=== PATIENT | male | born 1990 | race Caucasian/White ===

== ENCOUNTER 2016-04-10 10:23 | Emergency (ER) | payer MEDICAID, SELFPAY ==
[2016-04-10 11:17] LABS: BASO # 0.1 K/mm3 (0.0-0.2); BASO % 0.9 % (0.0-1.0); EOS # 0.7 K/mm3 (0.0-0.50); EOS % 7.3 % (0.0-3.0); LARGE UNSTAINED CELL # 0.3 K/mm3 (0.0-0.4); LARGE UNSTAINED CELL % 2.9 % (0.0-4.0); LYMPH # 2.5 K/mm3 (1.5-6.5); LYMPH % 26.5 % (24.0-44.0); MEAN CORPUSCULAR HEMOGLOBIN 30.6 pg (27.0-33.0); MEAN CORPUSCULAR VOLUME 92.6 fl (80.0-96.0); MONO # 0.6 K/mm3 (0.0-0.8); MONO % 5.8 % (0.0-5.0); NEUTROPHILS # 5.4 K/mm3 (1.8-7.7); NEUTROPHILS % 56.6 % (36.0-66.0); PLATELET COUNT, AUTOMATED 160 k/mm3 (150-450); RED CELL DISTRIBUTION WIDTH 12.8 % (11.5-14.5); WHITE BLOOD COUNT 9.5 K/mm3 (4.0-10.0)
[2016-04-10 11:23] LABS: ANION GAP 8 MEQ/L (8-16); BLOOD UREA NITROGEN 13 MG/DL (7-18); CALCIUM LEVEL 9.1 MG/DL (8.5-10.1); CARBON DIOXIDE LEVEL 27 MEQ/L (21-32); CHLORIDE LEVEL 106 MEQ/L (98-107); CREATININE FOR GFR 0.81 MG/DL (0.70-1.30); GLOMERULAR FILTRATION RATE > 60.0 (>60); GLUCOSE, FASTING 95 MG/DL (70-105); POTASSIUM SERUM 4.5 MEQ/L (3.5-5.1); SODIUM LEVEL 141 MEQ/L (136-145)
--- NOTE | 2016-04-10 11:37 | REP ---
Chest two views HISTORY: Chest pain Comparison: 04/27/2007 The lungs are clear. The heart is normal in size. The pulmonary vasculature is normal in appearance. The bony structure is intact. Two prosthetic heart valves are present. The patient is status post sternotomy. IMPRESSION: No acute disease. Signed by Darrell Patel MD 04/10/2016 11:28 A
--- NOTE | 2016-04-10 14:55 | EDDOCDS ---
Physician Documentation [facility], [place] Name: Makc Negrete Age: 26 yrs Sex: Male : 1990 Arrival Date: 04/10/2016 Time: 10:23 Bed 10 Private MD: NO PRIMARY PHYSICIAN, . Disposition: 04/10 14:38 Critical Care: Critical care not applicable. pc Disposition: 04/10/16 14:42 Discharged to Home/Self Care. 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 - Condition is Stable. - Discharge Instructions: Nonspecific Chest Pain. - Prescriptions for Warfarin 5 mg Oral Tablet - take 1 tablet by ORAL route as directed Day 1: 2 tabs po, day 2: 1.5 tabs po, day 3 until finished: 1 po daily; 20 tablet. - Medication Reconciliation, Local Pharmacy Hours form. - Follow up: Ronaldo Dockery; When: Call to arrange an appointment; Reason: To establish care. - Problem is new. - Symptoms have improved. HPI: 11:05 This 26 yrs old Male presents to ER via Walkin/Carried/Asstd with complaints pc of Chest Tightness. 11:05 The history is obtained from the patient. Symptoms began suddenly just prior to pc arrival. Symptoms have resolved. They lasted for 15 minutes. Symptoms He was driving and had a squeezing sensation in his left chest, radiated to his throat and then resolved after 15-20 minutes. He denies any SOB, palpitations, nausea, diaphoresis. At its worst, the symptoms were a 5 out of 10. In the emergency department, the symptoms has resolved. The patient has experienced similar episodes in the past, several times, today's symptoms are similar, but lasting only a few minutes . The patient has not recently seen a physician. He had rheumatic fever as a child and required aortic and mitral replacement. He has been off all anticoagulation by his own choice, and has not seen a Gate Clerk in 8-10 years. Historical: - Allergies: No known drug Allergies; - Home Meds: 1. none - PMHx: Rheumatic Fever; - PSHx: aortic and mitral valve replacement; - The history from nurses notes was reviewed: and I agree with what is documented. - Social history: Smoking status: Patient uses tobacco products, heavy tobacco smoker. No barriers to communication noted, The patient speaks fluent [place], Speaks appropriately for age. - : The pt / caregiver states he / she is not on anticoagulants. Home medication list is obtained from the patient. - Hospitalizations: : No recent hospitalization is reported. - Exposure Risk Screening:: None identified. - Immunization history:: All immunizations up-to-date. - Family history: Not pertinent. - Social history:: the patient smokes cigarettes the patient drinks alcohol, the patient uses illicit drugs, including marijuana. ROS: 11:05 All systems are negative except as listed. The cardiovascular, respiratory, pc gastrointestinal and neurological components are also addressed in the HPI. Exam: 11:05 General Appearance: alert, no acute distress. pc 11:05 ENT: ear, nose and throat normal, pharynx normal. 11:05 Neck: supple, non-tender, no masses are appreciated. 11:05 Respiratory: no respiratory distress, normal breath sounds. 11:05 Cardiovascular: regular pulse rate, regular heart rhythm, equal and full pulses bilaterally, normal S1 and S2, with mechanical aortic valve, mechanical mitral valve. 11:05 Abdomen: soft, non-tender, no organomegaly, normal bowel sounds. 11:05 Skin: skin color is normal, warm, dry. 11:05 Extremities: The extremities have a grossly normal appearance, are non-tender, without acute ROM abnormalities. 11:05 Neuro: alert, oriented to person, place and time, cranial nerves normal as tested, no motor deficits, no sensory deficits. 11:05 Psych: normal mood. Vital Signs: 10:25 BP 136 / 87; Pulse 71; Resp 18; Temp 97.6(O); Pulse Ox 100% on R/A; Weight 81.65 kg / ct3 180.01 lbs (R); Height 5 ft. 10 in. (177.80 cm) (R); Pain 1/10; 10:39 BP 134 / 85 (auto/); mlb1 10:43 Pulse 68 MON; mlb1 10:43 BP 127 / 71; Pulse 98; Resp 16; Temp 99.0(TE); Pulse Ox 98% on R/A; Pain 0/10; mlb1 10:48 BP 119 / 75 (auto/); mlb1 10:49 Pulse 68 MON; Pulse Ox 98% ; mlb1 11:03 BP 123 / 65 (auto/); mlb1 11:04 Pulse 68 MON; Pulse Ox 99% ; mlb1 11:39 BP 125 / 80 (auto/); mlb1 11:41 Pulse 72 MON; Pulse Ox 99% ; mlb1 11:54 BP 118 / 70 (auto/); mlb1 11:55 Pulse 72 MON; Pulse Ox 96% ; mlb1 12:21 BP 115 / 61 (auto/); mlb1 12:22 Pulse 70 MON; mlb1 12:24 BP 114 / 61 (auto/); mlb1 12:25 Pulse 68 MON; Pulse Ox 97% ; mlb1 12:39 BP 106 / 54 (auto/); mlb1 12:40 Pulse 78 MON; Pulse Ox 96% ; mlb1 12:54 BP 124 / 58 (auto/); mlb1 12:55 Pulse 78 MON; Pulse Ox 98% ; mlb1 13:09 BP 122 / 62 (auto/); mlb1 13:10 Pulse 82 MON; Pulse Ox 96% ; mlb1 13:24 BP 120 / 62 (auto/); mlb1 13:25 Pulse 84 MON; Pulse Ox 97% ; mlb1 10:25 Body Mass Index 25.83 (81.65 kg, 177.80 cm) ct3 MDM: 10:32 ECG WITH READING ER PHYS+CARDIAG ordered. EDMS 10:51 Test interpretation: EKG. pc 11:04 Counter Server/Pulse Ox/q 30 min VS ordered. pc 11:04 IV Saline Lock ordered. pc 11:04 Rhythm Strip to chart ordered. pc 11:05 Differential diagnosis: anxiety, coronary artery disease gastroesophageal reflux pc disease (GERD). Plan: labs, EKG, imaging, d/w Cardiology. 11:06 Basic Metabolic Profile Ordered. EDMS 11:06 CBC with Diff Ordered. EDMS 11:06 Cardiac Injury Profile Ordered. EDMS 11:06 Troponin Ordered. EDMS 11:06 Chest, 2 View (pa\E\lat) Ordered. EDMS 11:10 Physician consultation: Dr. Ronaldo Dockery was contacted at 11:14, regarding patient's pc condition, and he advises to repeat his enzymes, and that there is no indication for an echocardiogram emergently today, since his valves have loud, audible clicks. 11:25 CBC with Diff Reviewed. pc 11:25 Basic Metabolic Profile Reviewed. pc 11:25 Cardiac Injury Profile Reviewed. pc 11:25 Troponin Reviewed. pc 11:26 Repeat EKG (put time details section) ordered. pc 11:26 Redraw CIP &Troponin (put time in details section) ordered. pc 11:28 Repeat EKG (put time details section) complete. deg 11:28 Redraw CIP &Troponin (put time in details section) complete. deg 11:30 ECG WITH READING ER PHYS ordered. EDMS 11:30 CARDIAC MARKER PANEL Ordered. EDMS 11:34 [facility] Payment Agreement was scanned into [employer] and attached to record. jp5 11:34 Financial registration complete. jp5 13:16 Test interpretation: EKG. pc 13:16 Data reviewed: old medical records, vital signs, nurses notes, EKG(s), lab test pc results, all radiology studies and available results. Test interpretation: LAB - all labs as ordered have been reviewed, interpreted and considered in the overall management of the clinical presentation; X-RAY - interpreted by Radiologist and personally reviewed, 1 view chest no acute disease. 13:24 Chest, 2 View (pa\E\lat) Reviewed. pc 13:37 CARDIAC MARKER PANEL Reviewed. pc 13:50 Consult PFS/PSA/Zigzag Appliquer: Resources/Social Work ordered. pc 14:28 Consult PFS/PSA/Zigzag Appliquer: Resources/Social Work complete. ca 14:36 The patient has been re-examined and re-evaluated. The clinical presentation did not pc require any ED treatment or interventions. Disposition: The historical points, examination findings, and any diagnostic results supporting the provided diagnosis, were discussed with the patient or legal guardian. The need for outpatient follow up with the provider listed on their discharge instructions was discussed. They were encouraged to return to [facility], or the nearest ED, if symptoms worsen/persist, or for any other questions/concerns. 14:38 Physician consultation: Dr. Ronaldo Dockery regarding patient's condition, and advises the pc medications/treatment as provided. and agrees with the treatment provided and advises the discharge plans as outlined. ED course: He has been offered anticoagulation and referral to Dr. Dockery, who has agreed to follow his care. The patient is not sure if he will do either. EC:51 Rate is 69 beats/min. Rhythm is regular, Normal Sinus Rhythm. QRS Runnells is Normal. ND pc interval is normal. QRS interval is normal. QT interval is normal. No Q waves. T waves are Peaked in leads V2, V3, V4, V5. ST Segment is elevated in leads II, III, aVF, V2, V3, V4, V5, <1mm. Clinical impression: Normal Sinus Rhythm, ST-T changes consistent with early repolarization., and LAE. 13:16 Rate is 76 beats/min. Rhythm is regular, Normal Sinus Rhythm. QRS Runnells is Normal. ND pc interval is normal. QRS interval is normal. QT interval is normal. Q waves are Old in lead III. T waves are Normal. ST Segment is elevated in leads II, III, aVF, V2, V3, V4, V5, V6, <1mm. Clinical impression: Normal Sinus Rhythm, ST-T changes consistent with early repolarization., and LAE. No change from previous ECG on April 10, 2015. Signatures: Dispatcher [employer] EDEliseo Valdez MD MD pc Murray, Denise, Technical Associate Unit deg Osmar, Antonella, PSA PSA ca Gordo Christine RN RN mlb1 Jenise Cordova RN RN ck1 Belem Lawrence jp5 The chart was reviewed and I authenticate all verbal orders and agree with the evaluation and treatment provided.Corrections: (The following items were deleted from the chart) 11:05 10:51 Rate is 69 beats/min. Rhythm is regular, Normal Sinus Rhythm. QRS Runnells is Normal. pc ND interval is normal. QRS interval is normal. QT interval is normal. No Q waves. T waves are Normal. ST Segment is elevated in leads II, III, aVF, V2, V3, V4, V5, <1mm. Clinical impression: Normal Sinus Rhythm, ST-T changes consistent with early repolarization., and LAE. pc Attachments: 11:34 [facility] Payment Agreement jp5 [facility]
--- NOTE | 2016-04-10 14:55 | EDDOCDS ---
Nurse's Notes [facility] Name: Mack Negrete Age: 26 yrs Sex: Male : 1990 Arrival Date: 04/10/2016 Time: 10:23 Bed 10 Private MD: NO PRIMARY PHYSICIAN, . 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 Aspirin was not taken prior to arrival. Adult Sepsis Screening: The patient does not have new or worsening altered mentation. Patient's respiratory rate is less than 22. Systolic blood pressure is greater than 100. Patient has a qSOFA score of 0- Negative Sepsis Screen. Suicide/Homicide risk assessment- the patient denies having any suicidal and/or homicidal ideations and does not present with any other emotional, behavioral or mental health complaints. Status: Patient is not a student services counselor or dependent. Transition of care: patient was not received from another setting of care. 10:27 Acuity: EDWIN Level 2 ck1 10:27 Method Of Arrival: Walkin/Carried/Asstd ck1 10:28 Presenting complaint: "I took myself off of my medication 10 years ago." Reports not ck1 having seen his truck farmer for same amount of time. 10:35 Red Flag criteria, patient assessed and taken directly to a bed. ck1 Triage Assessment: 10:30 General: Appears in no apparent distress, comfortable, Behavior is appropriate for age, ck1 cooperative. Pain: Location: chest Pain currently is 1 out of 10 on a pain scale. At worst was 5 out of 10 on a pain scale. Quality of pain is described as tightness. HIV screening NA for this visit Offered previously. Neurological: Level of Consciousness is awake, alert, obeys commands, Oriented to person, place, time. Cardiovascular: Chest pain is described as vague, radiates neck episodes are continuous began 30 minutes prior to arrival. Respiratory: Denies shortness of breath. Derm: Skin is intact, is healthy with good turgor, Skin is pink, warm & dry. Historical: - Allergies: No known drug Allergies; - Home Meds: 1. none - PMHx: Rheumatic Fever; - PSHx: aortic and mitral valve replacement; - The history from nurses notes was reviewed: and I agree with what is documented. - Social history: Smoking status: Patient uses tobacco products, heavy tobacco smoker. No barriers to communication noted, The patient speaks fluent [place], Speaks appropriately for age. - : The pt / caregiver states he / she is not on anticoagulants. Home medication list is obtained from the patient. - Hospitalizations: : No recent hospitalization is reported. - Exposure Risk Screening:: None identified. - Immunization history:: All immunizations up-to-date. - Family history: Not pertinent. - Social history:: the patient smokes cigarettes the patient drinks alcohol, the patient uses illicit drugs, including marijuana. Screenin:32 Screening information is obtained from the patient. Fall risk: No risks identified. mlb1 Assistance ADL's: requires no assistance with activities of daily living. Abuse/DV Screen: The patient / caregiver reports he/she is: not in a situation that causes fear, pain or injury. Nutritional screening: No deficits noted. Advance Directives: Currently, there is no health care proxy. home support is adequate. Assessment: 10:51 General: Appears in no apparent distress, Behavior is appropriate for age, cooperative. mlb1 Pain: Denies pain. Neurological: No deficits noted. Cardiovascular: Rhythm is sinus rhythm No ectopy. Respiratory: Airway is patent Respiratory effort is even, unlabored, Breath sounds are clear bilaterally. Derm: No deficits noted. 11:41 General: Appears in no apparent distress, comfortable, Behavior is appropriate for age, mlb1 cooperative. Pain: Denies pain. Neurological: No deficits noted. Respiratory: No deficits noted. 12:47 General: Appears in no apparent distress, comfortable, Behavior is appropriate for age, mlb1 cooperative. Pain: Denies pain. Neurological: No deficits noted. Respiratory: No deficits noted. 13:45 General: Appears in no apparent distress, comfortable, Behavior is appropriate for age, mlb1 cooperative. Pain: Denies pain. Neurological: No deficits noted. Respiratory: No deficits noted. 14:53 General: Appears in no apparent distress, comfortable, Behavior is appropriate for age, mlb1 cooperative. Pain: Denies pain. Neurological: No deficits noted. Respiratory: No deficits noted. Social Work Consult: 14:38 Social Work Note: Provided information regarding [facility] services. No ca other concerns noted. Vital Signs: 10:25 BP 136 / 87; Pulse 71; Resp 18; Temp 97.6(O); Pulse Ox 100% on R/A; Weight 81.65 kg ct3 (R); Height 5 ft. 10 in. (177.80 cm) (R); Pain 1/10; 10:39 BP 134 / 85 (auto/); mlb1 10:43 Pulse 68 MON; mlb1 10:43 BP 127 / 71; Pulse 98; Resp 16; Temp 99.0(TE); Pulse Ox 98% on R/A; Pain 0/10; mlb1 10:48 BP 119 / 75 (auto/); mlb1 10:49 Pulse 68 MON; Pulse Ox 98% ; mlb1 11:03 BP 123 / 65 (auto/); mlb1 11:04 Pulse 68 MON; Pulse Ox 99% ; mlb1 11:39 BP 125 / 80 (auto/); mlb1 11:41 Pulse 72 MON; Pulse Ox 99% ; mlb1 11:54 BP 118 / 70 (auto/); mlb1 11:55 Pulse 72 MON; Pulse Ox 96% ; mlb1 12:21 BP 115 / 61 (auto/); mlb1 12:22 Pulse 70 MON; mlb1 12:24 BP 114 / 61 (auto/); mlb1 12:25 Pulse 68 MON; Pulse Ox 97% ; mlb1 12:39 BP 106 / 54 (auto/); mlb1 12:40 Pulse 78 MON; Pulse Ox 96% ; mlb1 12:54 BP 124 / 58 (auto/); mlb1 12:55 Pulse 78 MON; Pulse Ox 98% ; mlb1 13:09 BP 122 / 62 (auto/); mlb1 13:10 Pulse 82 MON; Pulse Ox 96% ; mlb1 13:24 BP 120 / 62 (auto/); mlb1 13:25 Pulse 84 MON; Pulse Ox 97% ; mlb1 10:25 Body Mass Index 25.83 (81.65 kg, 177.80 cm) ct3 Vitals: 10:25 Log In Time: April 10, 2016 at 10:23. RN notified that patient meets Red Flag ct3 criteria. ED Course: 10:24 Patient visited by Yesica Vasquez PCA. ct3 10:24 NO PRIMARY PHYSICIAN, . is Private Physician. ct3 10:24 Patient moved to Waiting ct3 10:27 Patient moved to Pre RCE ct3 10:28 Triage Initiated ck1 10:32 Patient moved to 10 ck1 10:36 Eliseo Fairchild MD is Attending Physician. pc 10:36 EKG done. (by ED staff). Reviewed by Eliseo Fairchild MD. dem1 10:42 Patient visited by Mariza Lua. dem1 10:42 Pt greeted and oriented to ED. Patient advised of names of staff involved in care, dem1 location of call carrillo, wait times and NPO status. Patient has correct armband on for positive identification. Placed in gown. Bed in low position. Call light in reach. equipment monitor phototypesetting on. Pulse ox on. NIBP on. 10:51 Patient visited by Eliseo Fairchild MD. pc 10:53 Patient visited by Gordo Christine, RN. mlb1 10:53 Inserted saline lock: 20 gauge in left antecubital area and blood collected. The mlb1 patient tolerated the procedure well. 11:33 The patient / caregiver is instructed regarding the plan of care and ED course. mlb1 11:34 [facility] Payment Agreement was scanned into [employer] and attached to record. jp5 11:41 Patient visited by Gordo Christine, RN. mlb1 11:41 No procedures done that require assistance. mlb1 11:55 Chest, 2 View (pa\\E\\lat) Returned. EDMS 12:47 Patient visited by Gordo Christine, RN. mlb1 12:59 CARDIAC MARKER PANEL Sent. mlb1 13:00 EKG done. (by ED staff). Reviewed by Eliseo Fairchild MD. nb2 13:04 Patient visited by Keren Obregon. nb2 13:45 Patient visited by Gordo Christine, RN. mlb1 14:41 Ronaldo Dockery is Referral Physician. pc 14:53 Discontinued lock intact, bleeding controlled, pressure dressing applied, No mlb1 redness/swelling at site. 14:54 Patient visited by Gordo Christine, RN. mlb1 Order Results: Lab Order: Basic Metabolic Profile; SPEC'M 04/10/16 10:49 Test: GLUCOSE, FASTING; Value: 95; Range: 70-105; Units: MG/DL; Status: F Test: BLOOD UREA NITROGEN; Value: 13; Range: 7-18; Units: MG/DL; Status: F Test: CREATININE FOR GFR; Value: 0.81; Range: 0.70-1.30; Units: MG/DL; Status: F Test: GLOMERULAR FILTRATION RATE; Value: > 60.0; Range: >60; Status: F Test: SODIUM LEVEL; Value: 141; Range: 136-145; Units: MEQ/L; Status: F Test: POTASSIUM SERUM; Value: 4.5; Range: 3.5-5.1; Units: MEQ/L; Status: F Test: CHLORIDE LEVEL; Value: 106; Range: 98-107; Units: MEQ/L; Status: F Test: CARBON DIOXIDE LEVEL; Value: 27; Range: 21-32; Units: MEQ/L; Status: F Test: ANION GAP; Value: 8; Range: 8-16; Units: MEQ/L; Status: F Test: CALCIUM LEVEL; Value: 9.1; Range: 8.5-10.1; Units: MG/DL; Status: F Test Note: ; Units are mL/min/1.73 m2 Chronic Kidney Disease Staging per NKF: Stage I & II GFR >=60 Normal to Mildly Decreased Stage III GFR 30-59 Moderately Decreased Stage IV GFR 15-29 Severely Decreased Stage V GFR <15 Very Little GFR Left ESRD GFR <15 on INCIDENT RESPONSE SPECIALIST Lab Order: CBC with Diff; SPEC'M 04/10/16 10:49 Test: WHITE BLOOD COUNT; Value: 9.5; Range: 4.0-10.0; Units: K/mm3; Status: F Test: RED BLOOD COUNT; Value: 4.93; Range: 4.30-6.10; Units: M/mm3; Status: F Test: HEMOGLOBIN; Value: 15.1; Range: 14.0-18.0; Units: g/dl; Status: F Test: HEMATOCRIT; Value: 45.6; Range: 42.0-52.0; Units: %; Status: F Test: MEAN CORPUSCULAR VOLUME; Value: 92.6; Range: 80.0-96.0; Units: fl; Status: F Test: MEAN CORPUSCULAR HEMOGLOBIN; Value: 30.6; Range: 27.0-33.0; Units: pg; Status: F Test: MEAN CORPUSCULAR HGB CONC; Value: 33.0; Range: 32.0-36.5; Units: g/dl; Status: F Test: RED CELL DISTRIBUTION WIDTH; Value: 12.8; Range: 11.5-14.5; Units: %; Status: F Test: PLATELET COUNT, AUTOMATED; Value: 160; Range: 150-450; Units: k/mm3; Status: F Test: NEUTROPHILS %; Value: 56.6; Range: 36.0-66.0; Units: %; Status: F Test: LYMPH %; Value: 26.5; Range: 24.0-44.0; Units: %; Status: F Test: MONO %; Value: 5.8; Range: 0.0-5.0; Abnormal: Above high normal; Units: %; Status: F Test: EOS %; Value: 7.3; Range: 0.0-3.0; Abnormal: Above high normal; Units: %; Status: F Test: BASO %; Value: 0.9; Range: 0.0-1.0; Units: %; Status: F Test: LARGE UNSTAINED CELL %; Value: 2.9; Range: 0.0-4.0; Units: %; Status: F Test: NEUTROPHILS #; Value: 5.4; Range: 1.8-7.7; Units: K/mm3; Status: F Test: LYMPH #; Value: 2.5; Range: 1.5-6.5; Units: K/mm3; Status: F Test: MONO #; Value: 0.6; Range: 0.0-0.8; Units: K/mm3; Status: F Test: EOS #; Value: 0.7; Range: 0.0-0.50; Abnormal: Above high normal; Units: K/mm3; Status: F Test: BASO #; Value: 0.1; Range: 0.0-0.2; Units: K/mm3; Status: F Test: LARGE UNSTAINED CELL #; Value: 0.3; Range: 0.0-0.4; Units: K/mm3; Status: F Lab Order: Cardiac Injury Profile; SPEC'M 04/10/16 10:49 Test: CPK CREATINE PHOSPHOKINASE; Value: 127; Range: 39-308; Units: U/L; Status: F Test: CK-MB VALUE MASS; Value: 1.9; Range: 0.0-3.6; Units: NG/ML; Status: F Test: MB/CK RELATIVE INDEX; Value: 1.49; Range: < OR =4; Status: F Test Note: ; DIAGNOSIS CRITERIA MMB ng/ml Relative Index (RI) NON-AMI < or = 5 N/A MCKNIGHT ZONE > 5 < or = 4 AMI > 5 > 4 Lab Order: Troponin; SPEC'M 04/10/16 10:49 Test: TROPONIN I; Value: < 0.02; Range: < 0.10; Units: NG/ML; Status: F Test Note: ; Troponin I Reference Interval for [place] LOCI: 99th Percentile= 0.00-0.045 ng/ml Risk Stratification: <= 0.10 ng/ml Decreased Risk for Adverse Clinical Events. 0.10-1.50 ng/ml Increased Risk for Adverse Clinical Events. Evaluation of additional criterion and/or repeat testing in 2-6 hours is suggested to rule out myocardial damage. >= 1.50 ng/ml Indicative of Myocardial Injury. Lab Order: CARDIAC MARKER PANEL; SPEC'M 04/10/16 12:58 Test: CPK CREATINE PHOSPHOKINASE; Value: 106; Range: 39-308; Units: U/L; Status: F Test: CK-MB VALUE MASS; Value: 1.2; Range: 0.0-3.6; Units: NG/ML; Status: F Test: MB/CK RELATIVE INDEX; Value: 1.13; Range: < OR =4; Status: F Test: TROPONIN I; Value: < 0.02; Range: < 0.10; Units: NG/ML; Status: F Test Note: ; DIAGNOSIS CRITERIA MMB ng/ml Relative Index (RI) NON-AMI < or = 5 N/A MCKNIGHT ZONE > 5 < or = 4 AMI > 5 > 4 Radiology Order: Chest, 2 View (pa\\E\\lat) Test: Chest, 2 View (pa\\E\\lat) REASON FOR EXAMINATION: Chest Pain; Chest two views; ; HISTORY: Chest pain; ; Comparison: 04/27/2007; ; The lungs are clear. The heart is normal in size. The pulmonary vasculature is; normal in appearance. The bony structure is intact. Two prosthetic heart valves; are present. The patient is status post sternotomy.; ; IMPRESSION: No acute disease.; ; ; Signed by; Darrell Patel MD 04/10/2016 11:28 A; Outcome: 14:42 Discharge ordered by Provider. 14:53 Discharge Assessment: Patient awake, alert and oriented x 3. No cognitive and/or mlb1 functional deficits noted. Patient verbalized understanding of disposition instructions. patient administered narcotics - no. The following High Risk Discharge criteria are identified: None. Discharged to home ambulatory, with significant other. Condition: good. Discharge instructions given to patient, significant other, Instructed on discharge instructions, follow up and referral plans. medication usage, Demonstrated understanding of instructions, medications, Pt was receptive of discharge instructions/ teaching. Prescriptions given X 1. No special radiology studies were completed. Property sent home with patient. 14:53 Patient left the ED. mlb1 Signatures: Dispatcher [employer] EDMS Eliseo Fairchild MD MD Osmar, Antonella, PSA PSA Gordo Byrne RN RN mlb1 Jenise Cordova RN RN ck1 Yesica Vasquez, TRAVEL OT TRAVEL OT ct3 Mariza Lua1 Belem Lawrence jp5 Keren Obregon2 MTDD
--- NOTE | 2016-04-11 19:34 | ECGEPIP ---
Stationary ECG Study [facility] - ED Test Date: 2016-04-10 Pat Name: LAKESHIA LOPEZ Department: Room: - Gender: M Diamond Sawer: prabhakar : 1990 Requested By: Eliseo Alvarado Order Number: [id number] Reading MD: Cass Briceno Measurements Intervals [place] Rate: 69 P: 61 CT: 189 QRS: 87 QRSD: 106 T: 38 QT: 387 QTc: 416 Interpretive Statements SINUS RHYTHM POSSIBLE LEFT ATRIAL ENLARGEMENT TALL T-WAVES, CLINICAL CORRELATION NO PRIOR FOR COMPARISON Electronically Signed On 04-11-2016 19:34:39 EST by Cass Briceno
--- NOTE | 2016-04-11 19:41 | ECGEPIP ---
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
--- NOTE | 2016-04-12 15:55 | EDDOCDS ---
Physician Documentation [facility] Name: Mack Negrete Age: 26 yrs Sex: Male : 1990 Arrival Date: 04/10/2016 Time: 10:23 Bed 10 Private MD: NO PRIMARY PHYSICIAN, . Disposition: 04/10 14:38 Critical Care: Critical care not applicable. pc Disposition: 04/10/16 14:42 Discharged to Home/Self Care. 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 - Condition is Stable. - Discharge Instructions: Nonspecific Chest Pain. - Prescriptions for Warfarin 5 mg Oral Tablet - take 1 tablet by ORAL route as directed Day 1: 2 tabs po, day 2: 1.5 tabs po, day 3 until finished: 1 po daily; 20 tablet. - Medication Reconciliation, Local Pharmacy Hours form. - Follow up: Ronaldo Dockery; When: Call to arrange an appointment; Reason: To establish care. - Problem is new. - Symptoms have improved. HPI: 11:05 This 26 yrs old Male presents to ER via Walkin/Carried/Asstd with complaints pc of Chest Tightness. 11:05 The history is obtained from the patient. Symptoms began suddenly just prior to pc arrival. Symptoms have resolved. They lasted for 15 minutes. Symptoms He was driving and had a squeezing sensation in his left chest, radiated to his throat and then resolved after 15-20 minutes. He denies any SOB, palpitations, nausea, diaphoresis. At its worst, the symptoms were a 5 out of 10. In the emergency department, the symptoms has resolved. The patient has experienced similar episodes in the past, several times, today's symptoms are similar, but lasting only a few minutes . The patient has not recently seen a physician. He had rheumatic fever as a child and required aortic and mitral replacement. He has been off all anticoagulation by his own choice, and has not seen a Camp Counselor in 8-10 years. Historical: - Allergies: No known drug Allergies; - Home Meds: 1. none - PMHx: Rheumatic Fever; - PSHx: aortic and mitral valve replacement; - The history from nurses notes was reviewed: and I agree with what is documented. - Social history: Smoking status: Patient uses tobacco products, heavy tobacco smoker. No barriers to communication noted, The patient speaks fluent Moroccan, Speaks appropriately for age. - : The pt / caregiver states he / she is not on anticoagulants. Home medication list is obtained from the patient. - Hospitalizations: : No recent hospitalization is reported. - Exposure Risk Screening:: None identified. - Immunization history:: All immunizations up-to-date. - Family history: Not pertinent. - Social history:: the patient smokes cigarettes the patient drinks alcohol, the patient uses illicit drugs, including marijuana. ROS: 11:05 All systems are negative except as listed. The cardiovascular, respiratory, pc gastrointestinal and neurological components are also addressed in the HPI. Exam: 11:05 General Appearance: alert, no acute distress. pc 11:05 ENT: ear, nose and throat normal, pharynx normal. 11:05 Neck: supple, non-tender, no masses are appreciated. 11:05 Respiratory: no respiratory distress, normal breath sounds. 11:05 Cardiovascular: regular pulse rate, regular heart rhythm, equal and full pulses bilaterally, normal S1 and S2, with mechanical aortic valve, mechanical mitral valve. 11:05 Abdomen: soft, non-tender, no organomegaly, normal bowel sounds. 11:05 Skin: skin color is normal, warm, dry. 11:05 Extremities: The extremities have a grossly normal appearance, are non-tender, without acute ROM abnormalities. 11:05 Neuro: alert, oriented to person, place and time, cranial nerves normal as tested, no motor deficits, no sensory deficits. 11:05 Psych: normal mood. Vital Signs: 10:25 BP 136 / 87; Pulse 71; Resp 18; Temp 97.6(O); Pulse Ox 100% on R/A; Weight 81.65 kg / ct3 180.01 lbs (R); Height 5 ft. 10 in. (177.80 cm) (R); Pain 1/10; 10:39 BP 134 / 85 (auto/); mlb1 10:43 Pulse 68 MON; mlb1 10:43 BP 127 / 71; Pulse 98; Resp 16; Temp 99.0(TE); Pulse Ox 98% on R/A; Pain 0/10; mlb1 10:48 BP 119 / 75 (auto/); mlb1 10:49 Pulse 68 MON; Pulse Ox 98% ; mlb1 11:03 BP 123 / 65 (auto/); mlb1 11:04 Pulse 68 MON; Pulse Ox 99% ; mlb1 11:39 BP 125 / 80 (auto/); mlb1 11:41 Pulse 72 MON; Pulse Ox 99% ; mlb1 11:54 BP 118 / 70 (auto/); mlb1 11:55 Pulse 72 MON; Pulse Ox 96% ; mlb1 12:21 BP 115 / 61 (auto/); mlb1 12:22 Pulse 70 MON; mlb1 12:24 BP 114 / 61 (auto/); mlb1 12:25 Pulse 68 MON; Pulse Ox 97% ; mlb1 12:39 BP 106 / 54 (auto/); mlb1 12:40 Pulse 78 MON; Pulse Ox 96% ; mlb1 12:54 BP 124 / 58 (auto/); mlb1 12:55 Pulse 78 MON; Pulse Ox 98% ; mlb1 13:09 BP 122 / 62 (auto/); mlb1 13:10 Pulse 82 MON; Pulse Ox 96% ; mlb1 13:24 BP 120 / 62 (auto/); mlb1 13:25 Pulse 84 MON; Pulse Ox 97% ; mlb1 10:25 Body Mass Index 25.83 (81.65 kg, 177.80 cm) ct3 MDM: 10:32 ECG WITH READING ER PHYS+CARDIAG ordered. EDMS 10:51 Test interpretation: EKG. pc 11:04 Semaphore Operator/Pulse Ox/q 30 min VS ordered. pc 11:04 IV Saline Lock ordered. pc 11:04 Rhythm Strip to chart ordered. pc 11:05 Differential diagnosis: anxiety, coronary artery disease gastroesophageal reflux pc disease (GERD). Plan: labs, EKG, imaging, d/w Cardiology. 11:06 Basic Metabolic Profile Ordered. EDMS 11:06 CBC with Diff Ordered. EDMS 11:06 Cardiac Injury Profile Ordered. EDMS 11:06 Troponin Ordered. EDMS 11:06 Chest, 2 View (pa\E\lat) Ordered. EDMS 11:10 Physician consultation: Dr. Ronaldo Dockery was contacted at 11:14, regarding patient's pc condition, and he advises to repeat his enzymes, and that there is no indication for an echocardiogram emergently today, since his valves have loud, audible clicks. 11:25 CBC with Diff Reviewed. pc 11:25 Basic Metabolic Profile Reviewed. pc 11:25 Cardiac Injury Profile Reviewed. pc 11:25 Troponin Reviewed. pc 11:26 Repeat EKG (put time details section) ordered. pc 11:26 Redraw CIP &Troponin (put time in details section) ordered. pc 11:28 Repeat EKG (put time details section) complete. deg 11:28 Redraw CIP &Troponin (put time in details section) complete. deg 11:30 ECG WITH READING ER PHYS ordered. EDMS 11:30 CARDIAC MARKER PANEL Ordered. EDMS 11:34 [facility] Payment Agreement was scanned into [employer] and attached to record. jp5 11:34 Financial registration complete. jp5 13:16 Test interpretation: EKG. pc 13:16 Data reviewed: old medical records, vital signs, nurses notes, EKG(s), lab test pc results, all radiology studies and available results. Test interpretation: LAB - all labs as ordered have been reviewed, interpreted and considered in the overall management of the clinical presentation; X-RAY - interpreted by Radiologist and personally reviewed, 1 view chest no acute disease. 13:24 Chest, 2 View (pa\E\lat) Reviewed. pc 13:37 CARDIAC MARKER PANEL Reviewed. pc 13:50 Consult PFS/PSA/Social Media Community Manager: Resources/Social Work ordered. pc 14:28 Consult PFS/PSA/Social Media Community Manager: Resources/Social Work complete. ca 14:36 The patient has been re-examined and re-evaluated. The clinical presentation did not pc require any ED treatment or interventions. Disposition: The historical points, examination findings, and any diagnostic results supporting the provided diagnosis, were discussed with the patient or legal guardian. The need for outpatient follow up with the provider listed on their discharge instructions was discussed. They were encouraged to return to [facility], or the nearest ED, if symptoms worsen/persist, or for any other questions/concerns. 14:38 Physician consultation: Dr. Ronaldo Dockery regarding patient's condition, and advises the pc medications/treatment as provided. and agrees with the treatment provided and advises the discharge plans as outlined. ED course: He has been offered anticoagulation and referral to Dr. Dockery, who has agreed to follow his care. The patient is not sure if he will do either. 04/11 10:59 ECG/EKG was scanned into [employer] and attached to record. gb EC/16 10:51 Rate is 69 beats/min. Rhythm is regular, Normal Sinus Rhythm. QRS [place] is Normal. [place] pc interval is normal. QRS interval is normal. QT interval is normal. No Q waves. T waves are Peaked in leads V2, V3, V4, V5. ST Segment is elevated in leads II, III, aVF, V2, V3, V4, V5, <1mm. Clinical impression: Normal Sinus Rhythm, ST-T changes consistent with early repolarization., and LAE. 13:16 Rate is 76 beats/min. Rhythm is regular, Normal Sinus Rhythm. QRS [place] is Normal. [place] pc interval is normal. QRS interval is normal. QT interval is normal. Q waves are Old in lead III. T waves are Normal. ST Segment is elevated in leads II, III, aVF, V2, V3, V4, V5, V6, <1mm. Clinical impression: Normal Sinus Rhythm, ST-T changes consistent with early repolarization., and LAE. No change from previous ECG on April 10, 2015. Signatures: Dispatcher [employer] EDEliseo Valdez MD MD pc Murray, Denise, Television Production Technician Unit deg Antonella Prasad, GINGER PSA ca Peri, Hoda, Reg Reg gb Emmett, Gordo Gama RN RN mlb1 Jenise CordovaRN RN ck1 Belem Lawrence jp5 The chart was reviewed and I authenticate all verbal orders and agree with the evaluation and treatment provided.Corrections: (The following items were deleted from the chart) 11:05 10:51 Rate is 69 beats/min. Rhythm is regular, Normal Sinus Rhythm. QRS [place] is Normal. pc [place] interval is normal. QRS interval is normal. QT interval is normal. No Q waves. T waves are Normal. ST Segment is elevated in leads II, III, aVF, V2, V3, V4, V5, <1mm. Clinical impression: Normal Sinus Rhythm, ST-T changes consistent with early repolarization., and LAE. pc Attachments: 11:34 [facility] Payment Agreement jp5 04/11 10:59 ECG/EKG Chart Complete MTDD
--- NOTE | 2016-04-12 15:55 | EDDOCDS ---
Physician Documentation [facility] Name: Mack Negrete Age: 26 yrs Sex: Male : 1990 Arrival Date: 04/10/2016 Time: 10:23 Bed 10 Private MD: NO PRIMARY PHYSICIAN, . Disposition: 04/10 14:38 Critical Care: Critical care not applicable. pc Disposition: 04/10/16 14:42 Discharged to Home/Self Care. 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 - Condition is Stable. - Discharge Instructions: Nonspecific Chest Pain. - Prescriptions for Warfarin 5 mg Oral Tablet - take 1 tablet by ORAL route as directed Day 1: 2 tabs po, day 2: 1.5 tabs po, day 3 until finished: 1 po daily; 20 tablet. - Medication Reconciliation, Local Pharmacy Hours form. - Follow up: Ronaldo Dockery; When: Call to arrange an appointment; Reason: To establish care. - Problem is new. - Symptoms have improved. HPI: 11:05 This 26 yrs old Male presents to ER via Walkin/Carried/Asstd with complaints pc of Chest Tightness. 11:05 The history is obtained from the patient. Symptoms began suddenly just prior to pc arrival. Symptoms have resolved. They lasted for 15 minutes. Symptoms He was driving and had a squeezing sensation in his left chest, radiated to his throat and then resolved after 15-20 minutes. He denies any SOB, palpitations, nausea, diaphoresis. At its worst, the symptoms were a 5 out of 10. In the emergency department, the symptoms has resolved. The patient has experienced similar episodes in the past, several times, today's symptoms are similar, but lasting only a few minutes . The patient has not recently seen a physician. He had rheumatic fever as a child and required aortic and mitral replacement. He has been off all anticoagulation by his own choice, and has not seen a Soap Grinder in 8-10 years. Historical: - Allergies: No known drug Allergies; - Home Meds: 1. none - PMHx: Rheumatic Fever; - PSHx: aortic and mitral valve replacement; - The history from nurses notes was reviewed: and I agree with what is documented. - Social history: Smoking status: Patient uses tobacco products, heavy tobacco smoker. No barriers to communication noted, The patient speaks fluent Mosotho, Speaks appropriately for age. - : The pt / caregiver states he / she is not on anticoagulants. Home medication list is obtained from the patient. - Hospitalizations: : No recent hospitalization is reported. - Exposure Risk Screening:: None identified. - Immunization history:: All immunizations up-to-date. - Family history: Not pertinent. - Social history:: the patient smokes cigarettes the patient drinks alcohol, the patient uses illicit drugs, including marijuana. ROS: 11:05 All systems are negative except as listed. The cardiovascular, respiratory, pc gastrointestinal and neurological components are also addressed in the HPI. Exam: 11:05 General Appearance: alert, no acute distress. pc 11:05 ENT: ear, nose and throat normal, pharynx normal. 11:05 Neck: supple, non-tender, no masses are appreciated. 11:05 Respiratory: no respiratory distress, normal breath sounds. 11:05 Cardiovascular: regular pulse rate, regular heart rhythm, equal and full pulses bilaterally, normal S1 and S2, with mechanical aortic valve, mechanical mitral valve. 11:05 Abdomen: soft, non-tender, no organomegaly, normal bowel sounds. 11:05 Skin: skin color is normal, warm, dry. 11:05 Extremities: The extremities have a grossly normal appearance, are non-tender, without acute ROM abnormalities. 11:05 Neuro: alert, oriented to person, place and time, cranial nerves normal as tested, no motor deficits, no sensory deficits. 11:05 Psych: normal mood. Vital Signs: 10:25 BP 136 / 87; Pulse 71; Resp 18; Temp 97.6(O); Pulse Ox 100% on R/A; Weight 81.65 kg / ct3 180.01 lbs (R); Height 5 ft. 10 in. (177.80 cm) (R); Pain 1/10; 10:39 BP 134 / 85 (auto/); mlb1 10:43 Pulse 68 MON; mlb1 10:43 BP 127 / 71; Pulse 98; Resp 16; Temp 99.0(TE); Pulse Ox 98% on R/A; Pain 0/10; mlb1 10:48 BP 119 / 75 (auto/); mlb1 10:49 Pulse 68 MON; Pulse Ox 98% ; mlb1 11:03 BP 123 / 65 (auto/); mlb1 11:04 Pulse 68 MON; Pulse Ox 99% ; mlb1 11:39 BP 125 / 80 (auto/); mlb1 11:41 Pulse 72 MON; Pulse Ox 99% ; mlb1 11:54 BP 118 / 70 (auto/); mlb1 11:55 Pulse 72 MON; Pulse Ox 96% ; mlb1 12:21 BP 115 / 61 (auto/); mlb1 12:22 Pulse 70 MON; mlb1 12:24 BP 114 / 61 (auto/); mlb1 12:25 Pulse 68 MON; Pulse Ox 97% ; mlb1 12:39 BP 106 / 54 (auto/); mlb1 12:40 Pulse 78 MON; Pulse Ox 96% ; mlb1 12:54 BP 124 / 58 (auto/); mlb1 12:55 Pulse 78 MON; Pulse Ox 98% ; mlb1 13:09 BP 122 / 62 (auto/); mlb1 13:10 Pulse 82 MON; Pulse Ox 96% ; mlb1 13:24 BP 120 / 62 (auto/); mlb1 13:25 Pulse 84 MON; Pulse Ox 97% ; mlb1 10:25 Body Mass Index 25.83 (81.65 kg, 177.80 cm) ct3 MDM: 10:32 ECG WITH READING ER PHYS+CARDIAG ordered. EDMS 10:51 Test interpretation: EKG. pc 11:04 Senior Business Development Analyst/Pulse Ox/q 30 min VS ordered. pc 11:04 IV Saline Lock ordered. pc 11:04 Rhythm Strip to chart ordered. pc 11:05 Differential diagnosis: anxiety, coronary artery disease gastroesophageal reflux pc disease (GERD). Plan: labs, EKG, imaging, d/w Cardiology. 11:06 Basic Metabolic Profile Ordered. EDMS 11:06 CBC with Diff Ordered. EDMS 11:06 Cardiac Injury Profile Ordered. EDMS 11:06 Troponin Ordered. EDMS 11:06 Chest, 2 View (pa\E\lat) Ordered. EDMS 11:10 Physician consultation: Dr. Ronaldo Dockery was contacted at 11:14, regarding patient's pc condition, and he advises to repeat his enzymes, and that there is no indication for an echocardiogram emergently today, since his valves have loud, audible clicks. 11:25 CBC with Diff Reviewed. pc 11:25 Basic Metabolic Profile Reviewed. pc 11:25 Cardiac Injury Profile Reviewed. pc 11:25 Troponin Reviewed. pc 11:26 Repeat EKG (put time details section) ordered. pc 11:26 Redraw CIP &Troponin (put time in details section) ordered. pc 11:28 Repeat EKG (put time details section) complete. deg 11:28 Redraw CIP &Troponin (put time in details section) complete. deg 11:30 ECG WITH READING ER PHYS ordered. EDMS 11:30 CARDIAC MARKER PANEL Ordered. EDMS 11:34 [facility] Payment Agreement was scanned into [employer] and attached to record. jp5 11:34 Financial registration complete. jp5 13:16 Test interpretation: EKG. pc 13:16 Data reviewed: old medical records, vital signs, nurses notes, EKG(s), lab test pc results, all radiology studies and available results. Test interpretation: LAB - all labs as ordered have been reviewed, interpreted and considered in the overall management of the clinical presentation; X-RAY - interpreted by Radiologist and personally reviewed, 1 view chest no acute disease. 13:24 Chest, 2 View (pa\E\lat) Reviewed. pc 13:37 CARDIAC MARKER PANEL Reviewed. pc 13:50 Consult PFS/PSA/Brand Marketing Intern: Resources/Social Work ordered. pc 14:28 Consult PFS/PSA/Brand Marketing Intern: Resources/Social Work complete. ca 14:36 The patient has been re-examined and re-evaluated. The clinical presentation did not pc require any ED treatment or interventions. Disposition: The historical points, examination findings, and any diagnostic results supporting the provided diagnosis, were discussed with the patient or legal guardian. The need for outpatient follow up with the provider listed on their discharge instructions was discussed. They were encouraged to return to [facility], or the nearest ED, if symptoms worsen/persist, or for any other questions/concerns. 14:38 Physician consultation: Dr. Ronaldo Dockery regarding patient's condition, and advises the pc medications/treatment as provided. and agrees with the treatment provided and advises the discharge plans as outlined. ED course: He has been offered anticoagulation and referral to Dr. Dockery, who has agreed to follow his care. The patient is not sure if he will do either. 04/11 10:59 ECG/EKG was scanned into [employer] and attached to record. gb EC/16 10:51 Rate is 69 beats/min. Rhythm is regular, Normal Sinus Rhythm. QRS [place] is Normal. [place] pc interval is normal. QRS interval is normal. QT interval is normal. No Q waves. T waves are Peaked in leads V2, V3, V4, V5. ST Segment is elevated in leads II, III, aVF, V2, V3, V4, V5, <1mm. Clinical impression: Normal Sinus Rhythm, ST-T changes consistent with early repolarization., and LAE. 13:16 Rate is 76 beats/min. Rhythm is regular, Normal Sinus Rhythm. QRS [place] is Normal. RI pc interval is normal. QRS interval is normal. QT interval is normal. Q waves are Old in lead III. T waves are Normal. ST Segment is elevated in leads II, III, aVF, V2, V3, V4, V5, V6, <1mm. Clinical impression: Normal Sinus Rhythm, ST-T changes consistent with early repolarization., and LAE. No change from previous ECG on April 10, 2015. Signatures: Dispatcher [employer] EDEliseo Valdez MD MD pc Murray, Denise, Compliance Specialist Unit deg Antonella Prasad, GINGER PSA ca Peri, Hoda, Reg Reg gb Emmett, Gordo Gama RN RN mlb1 Jenise CordovaRN RN ck1 Belem Lawrence jp5 The chart was reviewed and I authenticate all verbal orders and agree with the evaluation and treatment provided.Corrections: (The following items were deleted from the chart) 11:05 10:51 Rate is 69 beats/min. Rhythm is regular, Normal Sinus Rhythm. QRS [place] is Normal. pc [place] interval is normal. QRS interval is normal. QT interval is normal. No Q waves. T waves are Normal. ST Segment is elevated in leads II, III, aVF, V2, V3, V4, V5, <1mm. Clinical impression: Normal Sinus Rhythm, ST-T changes consistent with early repolarization., and LAE. pc Attachments: 11:34 [facility] Payment Agreement jp5 04/11 10:59 ECG/EKG Chart Complete MTDD
--- NOTE | 2016-04-12 15:55 | EDDOCDS ---
Nurse's Notes [facility] Name: Mack Negrete Age: 26 yrs Sex: Male : 1990 Arrival Date: 04/10/2016 Time: 10:23 Bed 10 Private MD: NO PRIMARY PHYSICIAN, . 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 Aspirin was not taken prior to arrival. Adult Sepsis Screening: The patient does not have new or worsening altered mentation. Patient's respiratory rate is less than 22. Systolic blood pressure is greater than 100. Patient has a qSOFA score of 0- Negative Sepsis Screen. Suicide/Homicide risk assessment- the patient denies having any suicidal and/or homicidal ideations and does not present with any other emotional, behavioral or mental health complaints. 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 Transition of care: patient was not received from another setting of care. 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 10:35 Red Flag criteria, patient assessed and taken directly to a bed. ck1 Triage Assessment: 10:30 General: Appears in no apparent distress, comfortable, Behavior is appropriate for age, ck1 cooperative. Pain: Location: chest Pain currently is 1 out of 10 on a pain scale. At worst was 5 out of 10 on a pain scale. Quality of pain is described as tightness. HIV screening NA for this visit Offered previously. Neurological: Level of Consciousness is awake, alert, obeys commands, Oriented to person, place, time. Cardiovascular: Chest pain is described as vague, radiates neck episodes are continuous began 30 minutes prior to arrival. Respiratory: Denies shortness of breath. Derm: Skin is intact, is healthy with good turgor, Skin is pink, warm & dry. Historical: - Allergies: No known drug Allergies; - Home Meds: 1. none - PMHx: Rheumatic Fever; - PSHx: aortic and mitral valve replacement; - The history from nurses notes was reviewed: and I agree with what is documented. - Social history: Smoking status: Patient uses tobacco products, heavy tobacco smoker. No barriers to communication noted, The patient speaks fluent Cymra[place], Speaks appropriately for age. - : The pt / caregiver states he / she is not on anticoagulants. Home medication list is obtained from the patient. - Hospitalizations: : No recent hospitalization is reported. - Exposure Risk Screening:: None identified. - Immunization history:: All immunizations up-to-date. - Family history: Not pertinent. - Social history:: the patient smokes cigarettes the patient drinks alcohol, the patient uses illicit drugs, including marijuana. Screenin:32 Screening information is obtained from the patient. Fall risk: No risks identified. mlb1 Assistance ADL's: requires no assistance with activities of daily living. Abuse/DV Screen: The patient / caregiver reports he/she is: not in a situation that causes fear, pain or injury. Nutritional screening: No deficits noted. Advance Directives: Currently, there is no health care proxy. home support is adequate. Assessment: 10:51 General: Appears in no apparent distress, Behavior is appropriate for age, cooperative. mlb1 Pain: Denies pain. Neurological: No deficits noted. Cardiovascular: Rhythm is sinus rhythm No ectopy. Respiratory: Airway is patent Respiratory effort is even, unlabored, Breath sounds are clear bilaterally. Derm: No deficits noted. 11:41 General: Appears in no apparent distress, comfortable, Behavior is appropriate for age, mlb1 cooperative. Pain: Denies pain. Neurological: No deficits noted. Respiratory: No deficits noted. 12:47 General: Appears in no apparent distress, comfortable, Behavior is appropriate for age, mlb1 cooperative. Pain: Denies pain. Neurological: No deficits noted. Respiratory: No deficits noted. 13:45 General: Appears in no apparent distress, comfortable, Behavior is appropriate for age, mlb1 cooperative. Pain: Denies pain. Neurological: No deficits noted. Respiratory: No deficits noted. 14:53 General: Appears in no apparent distress, comfortable, Behavior is appropriate for age, mlb1 cooperative. Pain: Denies pain. Neurological: No deficits noted. Respiratory: No deficits noted. Social Work Consult: 14:38 Social Work Note: Provided information regarding [facility] services. No ca other concerns noted. Vital Signs: 10:25 BP 136 / 87; Pulse 71; Resp 18; Temp 97.6(O); Pulse Ox 100% on R/A; Weight 81.65 kg ct3 (R); Height 5 ft. 10 in. (177.80 cm) (R); Pain 1/10; 10:39 BP 134 / 85 (auto/); mlb1 10:43 Pulse 68 MON; mlb1 10:43 BP 127 / 71; Pulse 98; Resp 16; Temp 99.0(TE); Pulse Ox 98% on R/A; Pain 0/10; mlb1 10:48 BP 119 / 75 (auto/); mlb1 10:49 Pulse 68 MON; Pulse Ox 98% ; mlb1 11:03 BP 123 / 65 (auto/); mlb1 11:04 Pulse 68 MON; Pulse Ox 99% ; mlb1 11:39 BP 125 / 80 (auto/); mlb1 11:41 Pulse 72 MON; Pulse Ox 99% ; mlb1 11:54 BP 118 / 70 (auto/); mlb1 11:55 Pulse 72 MON; Pulse Ox 96% ; mlb1 12:21 BP 115 / 61 (auto/); mlb1 12:22 Pulse 70 MON; mlb1 12:24 BP 114 / 61 (auto/); mlb1 12:25 Pulse 68 MON; Pulse Ox 97% ; mlb1 12:39 BP 106 / 54 (auto/); mlb1 12:40 Pulse 78 MON; Pulse Ox 96% ; mlb1 12:54 BP 124 / 58 (auto/); mlb1 12:55 Pulse 78 MON; Pulse Ox 98% ; mlb1 13:09 BP 122 / 62 (auto/); mlb1 13:10 Pulse 82 MON; Pulse Ox 96% ; mlb1 13:24 BP 120 / 62 (auto/); mlb1 13:25 Pulse 84 MON; Pulse Ox 97% ; mlb1 10:25 Body Mass Index 25.83 (81.65 kg, 177.80 cm) ct3 Vitals: 10:25 Log In Time: April 10, 2016 at 10:23. RN notified that patient meets Red Flag ct3 criteria. ED Course: 10:24 Patient visited by Yesica Vasquez PCA. ct3 10:24 NO PRIMARY PHYSICIAN, . is Private Physician. ct3 10:24 Patient moved to Waiting ct3 10:27 Patient moved to Pre RCE ct3 10:28 Triage Initiated ck1 10:32 Patient moved to 10 ck1 10:36 Eliseo Fairchild MD is Attending Physician. pc 10:36 EKG done. (by ED staff). Reviewed by Eliseo Fairchild MD. dem1 10:42 Patient visited by Mariza Lua. dem1 10:42 Pt greeted and oriented to ED. Patient advised of names of staff involved in care, dem1 location of call [place], wait times and NPO status. Patient has correct armband on for positive identification. Placed in gown. Bed in low position. Call light in reach. youth nutritional monitor on. Pulse ox on. NIBP on. 10:51 Patient visited by Eliseo Fairchild MD. pc 10:53 Patient visited by Gordo Christine, RN. mlb1 10:53 Inserted saline lock: 20 gauge in left antecubital area and blood collected. The mlb1 patient tolerated the procedure well. 11:33 The patient / caregiver is instructed regarding the plan of care and ED course. mlb1 11:34 [facility] Payment Agreement was scanned into [employer] and attached to record. jp5 11:41 Patient visited by Gordo Christine, RN. mlb1 11:41 No procedures done that require assistance. mlb1 11:55 Chest, 2 View (pa\\E\\lat) Returned. EDMS 12:47 Patient visited by Gordo Christine, RN. mlb1 12:59 CARDIAC MARKER PANEL Sent. mlb1 13:00 EKG done. (by ED staff). Reviewed by Eliseo Fairchild MD. nb2 13:04 Patient visited by Keren Obregon. nb2 13:45 Patient visited by Gordo Christine, RN. mlb1 14:41 Ronaldo Dockery is Referral Physician. pc 14:53 Discontinued lock intact, bleeding controlled, pressure dressing applied, No mlb1 redness/swelling at site. 14:54 Patient visited by Gordo Christine, RN. mlb1 04/11 10:59 ECG/EKG was scanned into [employer] and attached to record. gb 20:02 EKG-ADULT Returned. EDMS 20:02 ECG WITH READING ER PHYS Returned. EDMS Order Results: Lab Order: Basic Metabolic Profile; SPEC'M 04/10/16 10:49 Test: GLUCOSE, FASTING; Value: 95; Range: 70-105; Units: MG/DL; Status: F Test: BLOOD UREA NITROGEN; Value: 13; Range: 7-18; Units: MG/DL; Status: F Test: CREATININE FOR GFR; Value: 0.81; Range: 0.70-1.30; Units: MG/DL; Status: F Test: GLOMERULAR FILTRATION RATE; Value: > 60.0; Range: >60; Status: F Test: SODIUM LEVEL; Value: 141; Range: 136-145; Units: MEQ/L; Status: F Test: POTASSIUM SERUM; Value: 4.5; Range: 3.5-5.1; Units: MEQ/L; Status: F Test: CHLORIDE LEVEL; Value: 106; Range: 98-107; Units: MEQ/L; Status: F Test: CARBON DIOXIDE LEVEL; Value: 27; Range: 21-32; Units: MEQ/L; Status: F Test: ANION GAP; Value: 8; Range: 8-16; Units: MEQ/L; Status: F Test: CALCIUM LEVEL; Value: 9.1; Range: 8.5-10.1; Units: MG/DL; Status: F Test Note: ; Units are mL/min/1.73 m2 Chronic Kidney Disease Staging per NKF: Stage I & II GFR >=60 Normal to Mildly Decreased Stage III GFR 30-59 Moderately Decreased Stage IV GFR 15-29 Severely Decreased Stage V GFR <15 Very Little GFR Left ESRD GFR <15 on METHODS ENGINEER Lab Order: CBC with Diff; SPEC'M 04/10/16 10:49 Test: WHITE BLOOD COUNT; Value: 9.5; Range: 4.0-10.0; Units: K/mm3; Status: F Test: RED BLOOD COUNT; Value: 4.93; Range: 4.30-6.10; Units: M/mm3; Status: F Test: HEMOGLOBIN; Value: 15.1; Range: 14.0-18.0; Units: g/dl; Status: F Test: HEMATOCRIT; Value: 45.6; Range: 42.0-52.0; Units: %; Status: F Test: MEAN CORPUSCULAR VOLUME; Value: 92.6; Range: 80.0-96.0; Units: fl; Status: F Test: MEAN CORPUSCULAR HEMOGLOBIN; Value: 30.6; Range: 27.0-33.0; Units: pg; Status: F Test: MEAN CORPUSCULAR HGB CONC; Value: 33.0; Range: 32.0-36.5; Units: g/dl; Status: F Test: RED CELL DISTRIBUTION WIDTH; Value: 12.8; Range: 11.5-14.5; Units: %; Status: F Test: PLATELET COUNT, AUTOMATED; Value: 160; Range: 150-450; Units: k/mm3; Status: F Test: NEUTROPHILS %; Value: 56.6; Range: 36.0-66.0; Units: %; Status: F Test: LYMPH %; Value: 26.5; Range: 24.0-44.0; Units: %; Status: F Test: MONO %; Value: 5.8; Range: 0.0-5.0; Abnormal: Above high normal; Units: %; Status: F Test: EOS %; Value: 7.3; Range: 0.0-3.0; Abnormal: Above high normal; Units: %; Status: F Test: BASO %; Value: 0.9; Range: 0.0-1.0; Units: %; Status: F Test: LARGE UNSTAINED CELL %; Value: 2.9; Range: 0.0-4.0; Units: %; Status: F Test: NEUTROPHILS #; Value: 5.4; Range: 1.8-7.7; Units: K/mm3; Status: F Test: LYMPH #; Value: 2.5; Range: 1.5-6.5; Units: K/mm3; Status: F Test: MONO #; Value: 0.6; Range: 0.0-0.8; Units: K/mm3; Status: F Test: EOS #; Value: 0.7; Range: 0.0-0.50; Abnormal: Above high normal; Units: K/mm3; Status: F Test: BASO #; Value: 0.1; Range: 0.0-0.2; Units: K/mm3; Status: F Test: LARGE UNSTAINED CELL #; Value: 0.3; Range: 0.0-0.4; Units: K/mm3; Status: F Lab Order: Cardiac Injury Profile; SPEC'M 02/16/17 10:49 Test: CPK CREATINE PHOSPHOKINASE; Value: 127; Range: 39-308; Units: U/L; Status: F Test: CK-MB VALUE MASS; Value: 1.9; Range: 0.0-3.6; Units: NG/ML; Status: F Test: MB/CK RELATIVE INDEX; Value: 1.49; Range: < OR =4; Status: F Test Note: ; DIAGNOSIS CRITERIA MMB ng/ml Relative Index (RI) NON-AMI < or = 5 N/A MCKNIGHT ZONE > 5 < or = 4 AMI > 5 > 4 Lab Order: Troponin; [facility] 04/10/16 10:49 Test: TROPONIN I; Value: < 0.02; Range: < 0.10; Units: NG/ML; Status: F Test Note: ; Troponin I Reference Interval for [place] LOCI: 99th Percentile= 0.00-0.045 ng/ml Risk Stratification: <= 0.10 ng/ml Decreased Risk for Adverse Clinical Events. 0.10-1.50 ng/ml Increased Risk for Adverse Clinical Events. Evaluation of additional criterion and/or repeat testing in 2-6 hours is suggested to rule out myocardial damage. >= 1.50 ng/ml Indicative of Myocardial Injury. Lab Order: CARDIAC MARKER PANEL; [facility] 04/10/16 12:58 Test: CPK CREATINE PHOSPHOKINASE; Value: 106; Range: 39-308; Units: U/L; Status: F Test: CK-MB VALUE MASS; Value: 1.2; Range: 0.0-3.6; Units: NG/ML; Status: F Test: MB/CK RELATIVE INDEX; Value: 1.13; Range: < OR =4; Status: F Test: TROPONIN I; Value: < 0.02; Range: < 0.10; Units: NG/ML; Status: F Test Note: ; DIAGNOSIS CRITERIA MMB ng/ml Relative Index (RI) NON-AMI < or = 5 N/A MCKNIGHT ZONE > 5 < or = 4 AMI > 5 > 4 Radiology Order: EKG-ADULT Test: EKG-ADULT REASON FOR EXAMINATION: Chest Pain; Stationary ECG Study; [facility] - ED; ; Test Date: 2016-04-10; Pat Name: [facility] Department:; Room: -; Gender: M Sas Etl Developer: [email or web address]; : 1990 Requested By: lEiseo Alvarado; Order Number: [id number] Reading : Cass Briceno; Measurements; Intervals [place]; Rate: 69 P: 61; GA: 189 QRS: 87; QRSD: 106 T: 38; QT: 387; QTc: 416; Interpretive Statements; SINUS RHYTHM; POSSIBLE LEFT ATRIAL ENLARGEMENT; TALL T-WAVES, CLINICAL CORRELATION; NO PRIOR FOR COMPARISON; ; Electronically Signed On 04-11-2016 19:34:39 EST by Cass Briceno; Radiology Order: Chest, 2 View (pa\\E\\lat) Test: Chest, 2 View (pa\\E\\lat) REASON FOR EXAMINATION: Chest Pain; Chest two views; ; HISTORY: Chest pain; ; Comparison: 04/27/2007; ; The lungs are clear. The heart is normal in size. The pulmonary vasculature is; normal in appearance. The bony structure is intact. Two prosthetic heart valves; are present. The patient is status post sternotomy.; ; IMPRESSION: No acute disease.; ; ; Signed by; Darrell Patel MD 04/10/2016 11:28 A; Radiology Order: ECG WITH READING ER PHYS Test: ECG WITH READING ER PHYS REASON FOR EXAMINATION: CHEST PAIN; Stationary ECG Study; [facility] - ED; ; Test Date: 2016-04-10; Pat Name: [facility] Department:; Room: -; Gender: M Sas Etl Developer: [email or web address]; : 1990 Requested By: Eliseo Alvarado; Order Number: [id number] Reading MD: Cass Briceno; Measurements; Intervals [place]; Rate: 76 P: 61; GA: 164 QRS: 87; QRSD: 105 T: 36; QT: 365; QTc: 411; Interpretive Statements; SINUS RHYTHM; POSSIBLE LEFT ATRIAL ENLARGEMENT; ST ELEVATION, PROBABLY EARLY REPOLARIZATION, CLINICAL CORRELATION; ; Electronically Signed On 04-11-2016 19:40:50 EST by Cass Briceno; Outcome: 04/10 14:42 Discharge ordered by Provider. 14:53 Discharge Assessment: Patient awake, alert and oriented x 3. No cognitive and/or mlb1 functional deficits noted. Patient verbalized understanding of disposition instructions. patient administered narcotics - no. The following High Risk Discharge criteria are identified: None. Discharged to home ambulatory, with significant other. Condition: good. Discharge instructions given to patient, significant other, Instructed on discharge instructions, follow up and referral plans. medication usage, Demonstrated understanding of instructions, medications, Pt was receptive of discharge instructions/ teaching. Prescriptions given X 1. No special radiology studies were completed. Property sent home with patient. 14:53 Patient left the ED. mlb1 Signatures: Dispatcher [employer] EDMS Eliseo Fairchild MD MD pc Osmar, Antonella, PSA PSA ca Hoda Whitt, Reg Reg Gordo Negro RN RN mlb1 Jenise Cordova RN RN ck1 Yesica Vasquez, PRODUCTION UTILITY WORKER PRODUCTION UTILITY WORKER ct3 Mariza Lua1 Belem Lawrence jp5 Keren Obregon2 Chart Complete [facility]
== END 2016-04-10 14:53 | disposition home or self-care (01) ==
LOC: M ED 10:23
DX: R07.9 Chest pain, unspecified (principal); Z91.19 Patient's noncompliance with other medical treatment and regimen; Z95.4 Presence of other heart-valve replacement; F17.210 Nicotine dependence, cigarettes, uncomplicated

== ENCOUNTER → 2016-04-21 | Outpatient (CLI) | payer SELFPAY ==
[2016-04-21 13:57] LABS: INR 1.18
== END ==
LOC: M LAB 12:57
PROVIDERS: ATTEND Emergency Medicine
DX: Z79.01 Long term (current) use of anticoagulants (principal)

== ENCOUNTER → 2016-05-22 | Outpatient (REF) | payer MEDICAID ==
[2016-05-22 14:18] LABS: INR 1.02
== END ==
LOC: M LABDRAW1 13:34
PROVIDERS: ATTEND Internal Medicine Cardiovascular Disease
DX: Z95.2 Presence of prosthetic heart valve (principal)

== ENCOUNTER → 2016-05-28 | Outpatient (REF) | payer MEDICAID ==
[2016-05-28 16:54] LABS: INR 1.25
== END ==
LOC: M LABDRAW1 15:35
PROVIDERS: ATTEND Internal Medicine Cardiovascular Disease
DX: Z95.2 Presence of prosthetic heart valve (principal)

== ENCOUNTER → 2016-06-05 | Outpatient (REF) | payer MEDICAID ==
[2016-06-05 18:51] LABS: INR 1.66
== END ==
LOC: M LABDRAW1 17:34
PROVIDERS: ATTEND Internal Medicine Cardiovascular Disease
DX: Z95.2 Presence of prosthetic heart valve (principal)

== ENCOUNTER → 2016-06-16 | Outpatient (REF) | payer MEDICAID ==
[2016-06-16 16:26] LABS: INR 1.75
== END ==
LOC: M LABDRAW1 13:35
PROVIDERS: ATTEND Internal Medicine Cardiovascular Disease
DX: Z95.2 Presence of prosthetic heart valve (principal); Z79.01 Long term (current) use of anticoagulants

== ENCOUNTER → 2016-06-16 | Outpatient (REF) | payer MEDICAID, OTHER ==
[2016-06-16 16:52] LABS: ALBUMIN 4.1 GM/DL (3.2-5.2); ALBUMIN/GLOBULIN RATIO 1.52 (1.00-1.93); BILIRUBIN,DIRECT 0.1 MG/DL (0.0-0.2); BILIRUBIN,TOTAL 0.5 MG/DL (0.2-1.0); TOTAL PROTEIN 6.8 GM/DL (6.4-8.2)
== END ==
LOC: M LABDRAW1 13:37
PROVIDERS: ATTEND Family Medicine
DX: Z51.81 Encounter for therapeutic drug level monitoring (principal); Z79.899 Other long term (current) drug therapy

== ENCOUNTER 2016-08-11 22:14 | Emergency (ER) | payer OTHER ==
[~2016-08-11] VITALS: Ht 177.8 cm; Wt 83.2 kg
[2016-08-11] MEDS ORDERED: COUM10TA PO (22:25)
[2016-08-11] MEDS ORDERED: SUBO12MI SL (22:25)
--- NOTE | 2016-08-12 01:49 | REP ---
Clinical: Pain . Technique: AP, lateral, bilateral oblique and sunrise views right knee . Findings: The osseous structures and joint spaces are intact and normal. There is no evidence for acute fracture or dislocation. No joint effusion is appreciated. Surrounding soft tissues are unremarkable. No subcutaneous emphysema or radiodense foreign body. Impression: Normal examination. No acute fracture or dislocation. Signed by Rico Chow MD 08/12/2016 01:41 A
[2016-08-12 01:55] VITALS: BP 137/91
[2016-08-12] MEDS ORDERED: predniSONE 20 MG TAB PO ONE (02:45)
[2016-08-12] MEDS ORDERED: PRED20TA PO (02:46)
== END 2016-08-12 02:47 | disposition home or self-care (01) ==
LOC: M ED 23:15
DX: M25.561 Pain in right knee (principal)

== ENCOUNTER → 2016-08-14 | Outpatient (REF) | payer OTHER ==
[~2016-08-14] MED LIST: COUM10TA PO; PRED20TA PO; SUBO12MI SL
[2016-08-14 15:28] LABS: INR 1.58
== END ==
LOC: M LABDRAW1 15:02
PROVIDERS: ATTEND Internal Medicine Cardiovascular Disease
DX: Z95.2 Presence of prosthetic heart valve (principal)

== ENCOUNTER → 2016-08-28 | Outpatient (REF) | payer OTHER ==
[2016-08-28 13:33] LABS: INR 1.27
== END ==
LOC: M LABDRAW1 12:39
PROVIDERS: ATTEND Nurse Practitioner Family
DX: Z95.2 Presence of prosthetic heart valve (principal)

== ENCOUNTER → 2016-09-04 | Outpatient (REF) | payer OTHER ==
[2016-09-04 18:09] LABS: INR 2.88
== END ==
LOC: M LABDRAW1 17:09
PROVIDERS: ATTEND Physician Assistant
DX: Z51.81 Encounter for therapeutic drug level monitoring (principal); Z79.01 Long term (current) use of anticoagulants; Z95.2 Presence of prosthetic heart valve

== ENCOUNTER 2016-10-05 12:05 | Emergency (ER) | payer OTHER ==
[~2016-10-05] VITALS: Ht 177.8 cm; Wt 86.5 kg
--- NOTE | 2016-10-05 13:50 | REP ---
Right elbow for views : There is no fracture or dislocation. Mineralization and joint spaces are normal. There are no calcifications or foreign bodies. Impression: Negative right elbow . Signed by Seth Strong MD 10/05/2016 01:42 P
[2016-10-05 14:02] VITALS: BP 123/78
== END 2016-10-05 14:04 | disposition home or self-care (01) ==
LOC: M ED 12:05
DX: S50.01XA Contusion of right elbow, initial encounter (principal); Z95.2 Presence of prosthetic heart valve; Z79.01 Long term (current) use of anticoagulants; W22.09XA Striking against other stationary object, initial encounter; Y92.89 Other specified places as the place of occurrence of the external cause; Y93.89 Activity, other specified; Y99.9 Unspecified external cause status

== ENCOUNTER → 2016-12-19 | Outpatient (CLI) | payer OTHER ==
[2016-12-19 18:00] LABS: INR 1.13
== END ==
LOC: M LAB 16:35
PROVIDERS: ATTEND Nurse Practitioner Family
DX: Z51.81 Encounter for therapeutic drug level monitoring (principal); Z79.01 Long term (current) use of anticoagulants; I08.0 Rheumatic disorders of both mitral and aortic valves

== ENCOUNTER 2017-02-23 18:04 | Emergency (ER) | payer OTHER | END 2017-02-23 22:12 | disposition home or self-care (01) | LOC: M ED 18:04 | DX: S63.502A Unspecified sprain of left wrist, initial encounter (principal); Z95.2 Presence of prosthetic heart valve; F17.200 Nicotine dependence, unspecified, uncomplicated; X50.1XXA Overexertion from prolonged static or awkward postures, initial encounter; Y92.89 Other specified places as the place of occurrence of the external cause; Y93.01 Activity, walking, marching and hiking; Y99.0 Civilian activity done for income or pay | CPT/HCPCS: 73110 ==

== ENCOUNTER 2017-05-22 10:25 | Emergency (ER) | payer SELFPAY, OTHER | END 2017-05-22 12:11 | disposition home or self-care (01) | LOC: M ED 10:25 | DX: S50.11XA Contusion of right forearm, initial encounter (principal); W22.8XXA Striking against or struck by other objects, initial encounter; Y92.59 Other trade areas as the place of occurrence of the external cause; Y99.0 Civilian activity done for income or pay; Z79.891 Long term (current) use of opiate analgesic; Z79.01 Long term (current) use of anticoagulants | CPT/HCPCS: 73090 ==

== ENCOUNTER → 2021-02-06 | Outpatient (REF) | LOC: M LABSMTC 12:04 | PROVIDERS: ATTEND Pediatrics | DX: Z11.52 Encounter for screening for COVID-19 (principal); Z20.822 Contact with and (suspected) exposure to COVID-19 ==